=== PATIENT | male | born 1940 | race Caucasian/White ===

== ENCOUNTER → 2016-09-26 | Outpatient (CLI) | payer MEDICARE, OTHER ==
[~2016-09-26] MED LIST: ASPI325T32 PO; NEBI5TAB9 PO; OMEP20CA16 PO; OXYC-481 PO; RES15 PO
--- NOTE | 2016-09-26 14:47 | RADRPT ---
PROCEDURE: XR pelvis/left hip. CLINICAL INDICATION: Hip pain TECHNIQUE: AP pelvis/lateral left hip view performed. COMPARISON: 05/09/2016 FINDINGS: There is a left total hip replacement. There is no evidence of loosening of the prosthesis. There is mild right hip osteoarthrosis. This is associated with joint space narrowing, subchondral s clerosis and osteophytosis. There is normal osseous mineralization. No fractures or osseous lesion s are identified. The soft tissues are unremarkable. IMPRESSION: Left total hip replacement. Mild right hip osteoarthrosis. RPTAT: [facility] .Bhargav Cordoba MD, Date Time Electronically viewed and signed by .Bhargav Cordoba MD, on 09/26/2016 14:47 .B/
--- NOTE | 2016-09-27 05:30 | HKNOTE ---
DATE OF SERVICE: 09/26/16 FOLLOWUP POSTOPERATIVE 6-MONTH HIP AND KNEE CLINIC NOTE HISTORY OF PRESENT ILLNESS: This is a 76-year-old male who presents today for 6 -month followup regarding left total hip replacement on 03/24/2016. Since the patient was last seen, he denies any severe pain complaints to the hip. The patient states he continues to improve with no complications. No falls. The patient has been walking independently without the use of a walker or cane. The patient also states that the wound healed well. The patient does have shocking sensation along the lateral side of the thigh more distal, stopping just before the knee. The patient also has complaints of mild numbness to the lateral side of the knee. PHYSICAL EXAMINATION: Full range of motion to the left hip on flexion and extension. No pain with range of motion. Decreased sensation along the lateral thigh just proximal to the left knee. No tenderness to palpation throughout the left lower extremity. There is 5/5 strength to the hip adductors and abductors as well as flexors and extensors. No calf pain. Gait is normal and nonantalgic. Dental prophylaxis card given and dental prophylaxis discussed with the patient today. ASSESSMENT AND PLAN: 1. At this stage, the patient is doing well. The patient is made aware that shocking sensation that he feels could be secondary to palsy/nerve irritation that occurred intraoperatively and should dissipate over time. 2. The patient may follow up as needed. The patient made aware that should he experience any complications, he may call for an appointment as we would be glad to see him again. Dictated By: MARCUS STERN for DELIA RODRIGUEZ MD, KP/RAUL Conf#: [id number] DID#: [id number] TIM
== END | disposition home or self-care (01) ==
LOC: HKI 13:44
DX: Z47.1 Aftercare following joint replacement surgery (principal); Z96.642 Presence of left artificial hip joint
CPT/HCPCS: 73502; G0463